=== PATIENT | female | born 1960 | race Caucasian/White ===

== ENCOUNTER 2020-03-30 07:53 | Day surgery (SDC) | payer OTHER ==
--- NOTE | 2020-03-27 08:46 | NUR ---
COPY OF LABS, CXR AND EKG FAXED TO DR HEATHER RENTERIA AND COPIES TO OR FOR ANESTHESIOLOGIST TO REVIEW.
[~2020-03-30] VITALS: Ht 152.4 cm; Wt 68.0 kg
--- NOTE | 2020-03-30 07:39 | NUR ---
EKG ,CXR AND LAB TESTS SENT TO [facility]. ON 03-28-20 FOR REVIEW. TESTS OKAY FOR SURGERY FOR TODAY PER DR. Lisa SHRESTHA. DR. Lisa SHRESTHA REQUESTS ACCU CHECK ON ADM.
[2020-03-30 08:13] VITALS: BP 158/89
== END 2020-03-30 09:40 | disposition home or self-care (01) ==
LOC: DS 07:53 → MA 09:00 → DS 09:40 → OR 12:30
PROVIDERS: ATTEND Surgery
DX: C50.912 Malignant neoplasm of unspecified site of left female breast (principal); Z53.8 Procedure and treatment not carried out for other reasons; Z20.828 Contact with and (suspected) exposure to other viral communicable diseases
CPT/HCPCS: 77065; 82962; J2001; U0003-CS

== ENCOUNTER 2020-04-09 07:45 | Day surgery (SDC) | payer OTHER ==
--- NOTE | 2020-04-07 09:20 | NUR ---
CALL TO DR GRACIELA RENTERIA'S OFFICE SPOKE WITH MERLY ELDER:HAVING PREOP LAB WORK UPDATED. SHE WILL SPEAK WITH SURGERY COORDINATOR AND CALL DTR JOHNNIE TO TAKE HER TO [facility]. TC TO PATIENT. INSTRUCTED WILL NEED TO GO TO [facility] TODAY. VERBALIZED UNDERSTANDING.
--- NOTE | 2020-04-08 16:49 | NUR ---
RECEIVED THE LAB RESULT FROM DR. GRACIELA RENTERIA'S OFFICE. THE COPY WAS SENT TO OR FOR ANESTHESIOLOGIST TO REVIEW.
[~2020-04-09] VITALS: Ht 152.4 cm; Wt 77.1 kg
[2020-04-09 08:20] VITALS: BP 150/71
[2020-04-09 17:55] VITALS: BP 148/76
--- NOTE | 2020-04-09 18:38 | NUR ---
RECEIVED PT FROM OR. PT A/OX4. DENIES ANY BUSH OR DIZZINESS AT THIS TIME. MED SURG. RESPIRATIONS EQUAL AND UNLABORED ON RA. DENIES ANY SOB. PT C/O PAIN TO LEFT CHEST SURGICAL SITE 03/12 [facility], MEDICATED EMAR. PT NOTED TO HAVE 1 SURGICAL INCISION TO LEFT CHEST, COVERED WITH STERI STRIPS, CDI. PT DENIES ANY N/V. PT DENIES ANY ABDOMINAL PAIN. IV TO RH FLUSHED WELL, RUNNING NS @ 50ML/HR ORDERED PER EMAR. ENCOURAGED PT TO CALL FOR HELP PRIOR TO GETTING OUT OF BED. PT VERBALIZED UNDERSTANDING. WILL ENDORSE TO TOP SPOTTER RN. CALL LIGHT IN REACH. BED IN LOWEST POSITION.
--- NOTE | 2020-04-09 18:53 | NUR ---
SPOKE WITH DR. GRACIELA RENTERIA REGARDING PT D/C INFORMED HIM PT IS STILL IN A LOT OF PAIN AND WAS GIVEN MORPHINE ONCE. ASKED DR. RENTERIA IF PT CAN BE D/C'D FIRST THING TOMORROW MORNING, PER DR. RENTERIA JUST GIVE HER SOME PERCOCET ONE TIME AND SHE CAN GO HOME. RECEIVED ORDER FOR PERCOCET 5/325 MG PO ONCE.
[2020-04-09 18:57] VITALS: BP 148/76
--- NOTE | 2020-04-09 19:25 | NUR ---
PT FOR DISCHARGE TO HOME. DISCHARGE INSTRUCTIONS GIVEN. ASSISTED BY NURSE MONTEJO FOR TRANSLATION. PT ICELANDIC SPEAKING. PT VERBALIZED UNDERSTANDING. AWAKE AND ALERT, BREATHING EVEN AND UNLABORED. PAIN LEVEL 1/10 AT THIS TIME. ASKED ME TO CALL FAMILY MEMBER SO THEY CAN PICK HER UP, WILL REMOVE IV.
[2020-04-09 19:32] VITALS: BP 144/77
--- NOTE | 2020-04-09 19:34 | NUR ---
CALLED PT'S SON ARDHA COFFEY. INFORMED HIM PT FOR DISCHARGE. HE SAID HE WILL ARRIVE IN 30 MINUTES. INFORMED HIM TO CALL NURSE'S STATION [phone] ONCE HE IS DOWNSTAIRS.
--- NOTE | 2020-04-09 19:42 | NUR ---
REMOVED IV FROM RIGHT HAND, INTACT. ALBINO GO ASSISTING PT TO WEAR HER STREET CLOTHES.
--- NOTE | 2020-04-09 21:29 | NUR ---
LATE ENTRY: - DISCHARGE TO HOME. BROUGHT DOWN TO LOBBY BY ALBINO JONES VIA WHEELCHAIR. PT AWAKE AND ALERT, DISCHARGED HOME WITH ALL BELONGINGS
[2020-04-15 19:55] LABS: PLATELET COUNT 242 x10^3mcL (130-400); RED CELL DISTRIBUTION WIDTH 14.1 % (11.5-14.5)
[2020-04-15 19:56] LABS: BASOPHIL % 0.8 % (0-2)
== END 2020-04-09 20:10 | disposition home or self-care (01) ==
LOC: DS 07:45 → US 09:00 → DS 09:00 → OR 11:30 → MU 17:26 → DS 20:10
PROVIDERS: ATTEND Surgery
DX: C50.912 Malignant neoplasm of unspecified site of left female breast (principal)
CPT/HCPCS: 77065; 88329; 88344; 88361; 90658; G0378; J0690; J2001; J2250; J2270; J3010; J3490; J7030; Q9968